=== PATIENT | female | born 1990 | race Caucasian/White ===

== ENCOUNTER → 2022-01-24 09:42 | Outpatient (CLI) | payer OTHER, SELFPAY ==
[2022-01-24 11:05] LABS: Free T3, Triiodothyronine Free 3.66 pg/mL (2.77-5.27); Free T4, Direct Thyroxine 0.94 ng/dL (0.78-2.19)
[2022-01-24 11:18] LABS: Thyroid Stimulating Hormone 1.69 uIU/mL (0.47-4.68)
[2022-01-25 19:42] LABS: Anti Thyroglobulin Antibody <1.0 IU/mL (0.0-0.9); Thyroid Peroxidase Antibodies 9 IU/mL (0-34)
== END ==
PROVIDERS: Referring Provider Obstetrics & Gynecology; Visit Provider Obstetrics & Gynecology
DX: R22.1 Localized swelling, mass and lump, neck (principal)
CPT/HCPCS: 36415; 84439; 84443; 84481; 86376; 86800

== ENCOUNTER → 2022-05-04 14:11 | Outpatient (CLI) | payer OTHER, SELFPAY | PROVIDERS: PCP Family Medicine; Visit Provider Physician Assistant | DX: R30.0 Dysuria (principal) | CPT/HCPCS: 87086 ==

== ENCOUNTER 2023-12-21 20:06 | Emergency (ER) | payer OTHER, SELFPAY ==
[2023-12-21] VITALS (15 sets, daily range): BP systolic 139–198; BP diastolic 74–122; PULSE 96–117; RESP 9–35; TEMP 36.6; O2SAT 97–100; BMI 60.8
--- NOTE | 2023-12-21 20:28 | DI.RAD.S_ITS ---
PROCEDURE: XR CHEST 1V INDICATIONS: chest pain TECHNIQUE: One view of the chest was acquired. COMPARISON: None. FINDINGS: Surgical changes and devices: None. Lungs and pleura: Lungs are clear. No pleural effusions or pneumothorax. Mediastinum: Mediastinal contours appear normal. Heart size is normal. Bones and chest wall: No suspicious bony lesions. Overlying soft tissues appear unremarkable. IMPRESSION: No acute cardiopulmonary abnormality is seen. Dictated by: Samaria Storey M.D. on 12/21/2023 at 21:11 Approved by: Samaria Storey M.D. on 12/21/2023 at 21:11
[2023-12-21] MEDS: ASPIRIN 81 MG CHEW TAB 324 MG PO (21:11)
[2023-12-21 21:21] LABS: Add Manual Diff / Slide Review NO; Basophils Absolute Auto 200 /uL (0-100); Basophils Percent Auto 1.6 % (0-2); Eosinophils Absolute Auto 200 /uL (0-450); Eosinophils Percent Auto 1.4 % (2-4); Hematocrit 39.4 % (36-46); Hemoglobin 13.4 g/dL (12.0-16.0); Lymphocytes Absolute Auto 3000 /uL (1100-4500); Lymphocytes Percent Auto 23.8 % (25-40); Mean Corpuscular Hemoglobin 29.3 PG (26-34); Mean Corpuscular Volume 86.3 fL (80-100); Monocytes Absolute Auto 400 /uL (0-900); Monocytes Percent Auto 3.1 % (3-14); Neutrophils Absolute Auto 8800 /uL (1500-7000); Neutrophils Percent Auto 70.1 % (50-75); Platelet Count 348 X10^3/uL (150-400); Red Blood Cell Count 4.57 X10^6/uL (4.0-5.2); Red Cell Distribution Width 13.4 % (11.6-14.8); White Blood Cell Count 12.5 X10^3/uL (4.5-11.0)
[2023-12-21 21:32] LABS: INR 0.9 (0.9-1.3); Prothrombin Time 10.4 SECONDS (9.4-12.5)
[2023-12-21 21:34] LABS: PTT Partial Thromboplastin Tim 33 SECONDS (25.1-36.5)
[2023-12-21 21:36] LABS: Alanine Aminotransferase 17 IU/L (<35); Albumin 4.3 g/dL (3.5-5.0); Albumin Globulin Ratio 1.2 (1.0-2.8); Alkaline Phosphatase 79 U/L (38-126); Aspartate Aminotransferase 20 IU/L (14-36); BUN Creatinine Ratio 21.1 (6-22); Bilirubin Total 0.4 mg/dL (0.2-1.3); Blood Urea Nitrogen 15 mg/dL (7-17); Calcium 9.2 mg/dL (8.4-10.2); Carbon Dioxide 22 mmol/L (22-32); Chloride 106 mmol/L (98-107); Creatine Kinase 74 U/L (30-135); Estimated Glomerular Filt Rate > 60 mL/min (>60); Globulin 3.6 g/dL (1.7-4.1); Glucose 138 mg/dL (70-100); HEMOLYSIS < 15 (0-50); Lipase 157 U/L (23-300); Magnesium 2.1 mg/dL (1.6-2.3); Potassium 3.6 mmol/L (3.4-5.1); Sodium 140 mmol/L (137-145); Total Protein 7.9 g/dL (6.3-8.2)
[2023-12-21 21:47] LABS: Troponin I < 0.012 ng/mL (0.01-0.034)
--- NOTE | 2023-12-21 22:03 | DI.CT.S_ITS ---
PROCEDURE: CT ANGIO CHEST PE PROTOCOL INDICATIONS: high liklihood PE TECHNIQUE: After the administration of intravenous contrast, 2 mm thick sections acquired from the pulmonary apices to the posterior costophrenic angles. 3-dimensional maximum intensity projection (MIP) coronal and sagittal reformats were then acquired through the thorax. For radiation dose reduction, the following was used: automated exposure control, adjustment of mA and/or kV according to patient size. COMPARISON: None. FINDINGS: Image quality: Diagnostic. Pulmonary arteries: Pulmonary arteries are normal in size, and demonstrate no intraluminal filling defects to suggest central pulmonary embolism. Lower Neck: No enlarged lymph nodes. Thyroid: No thyroid nodules which require sonographic follow up, per consensus guidelines. Axillae: No enlarged lymph nodes. Chest Wall: Unremarkable. Bones: Unremarkable. Lungs and Pleura: No pneumothorax or pleural effusions. No consolidation or suspicious nodules. Heart: Heart size is normal. No pericardial effusion. Thoracic Vessels: No aortic aneurysm. Mediastinum and Jolene: No enlarged lymph nodes. Esophagus: No wall thickening. No hiatal hernia. Upper Abdomen: Visualized upper abdomen solid organs and bowel loops appear normal. IMPRESSION: No pulmonary embolus. No acute cardiopulmonary process. Approved by: Samaria Storey M.D. on 12/22/2023 at 1:23
[2023-12-22] VITALS (7 sets, daily range): BP systolic 122–136; BP diastolic 68–80; PULSE 97–109; RESP 21–33; O2SAT 99–100
--- NOTE | 2023-12-22 00:52 | ED.CHESTPAIN ---
HPI - Chest Pain General Chief Complaint: Chest Pain Stated Complaint: CHEST Pain, irr heart beat Time Seen by Provider: 12/21/23 21:42 History of Present Illness HPI narrative: 33-year-old woman with chronic tachycardia, generalized anxiety disorder, interstitial cystitis, currently on oral contraceptives reports that as she was driving home from work today she experienced a ?weird heart feeling? that she describes as 2 large powerful beats followed by an irregular. Associated with significant lightheadedness. These symptoms lasted approximately 5-10 minutes and were not associated with syncope, diaphoresis or overt pain. When she got home she did began to notice some centralized chest pain, still continuing to feel unwell she decided to come to the emergency room for further evaluation. On arrival she is tachycardic, hypertensive, mildly tachypneic, afebrile and oxygen saturations at 99% on room air. She describes no recent fevers, chills, nausea, vomiting, diarrhea, abdominal pain. Related Data Previous Rx's Medication Instructions Recorded desogestrel-e.estradiol 0.15 1 tab PO DAILY #84 tabs 07/10/23 mg-0.02 mg(21)/e.estrad 0.01 mg(5) tablet (Mircette (28)) benzonatate 100 mg capsule 100 mg PO BID PRN cough #20 caps 09/14/23 fluticasone propionate 50 1 spray intranasal Q12H #16 grams 09/14/23 mcg/actuation nasal spray,suspension (Flonase Allergy Relief) Allergies Allergy/AdvReac Type Severity Reaction Status Date / Time amoxicillin AdvReac Intermediate Diarrhea Verified 12/21/23 20:26 Review of Systems Review of Systems Narrative: Pertinent positive and negative findings as per HPI Patient History Medical History Abnormal Pap smear of cervix Acne BMI 39.0-39.9,adult Generalized anxiety disorder with panic attacks Heart rate fast Interstitial cystitis Surgical History Hx of partial nephrectomy Family History Mother No problems noted. Father No problems noted. Social History Smoking Status: Former smoker Smoking Status: Former smoker alcohol intake frequency: a few times a week Substance Use Type: does not use Exam Initial Vital Signs Initial Vital Signs: Vital Signs Temperature 97.8 F 12/21/23 20:22 Pulse Rate 115 H 12/21/23 20:22 Respiratory Rate 20 12/21/23 20:22 Blood Pressure 174/112 H 12/21/23 20:22 Pulse Oximetry 99 12/21/23 20:22 Oxygen Delivery Method Room Air 12/21/23 20:22 General: Healthy appearing, in no acute distress. Able to give a complete and coherent history. Well-nourished well-developed HEENT: Moist mucous membranes, normal sclera with reactive pupils, Neck: No JVD, supple Respiratory: Lungs are clear to auscultation, no wheezing no rales no rhonchi. Full and symmetrical air movement chest: No reproducible chest pain to palpation Cardiac: Sinus tachycardia Regular rate and rhythm no murmurs no bruits Abdomen: Soft, nontender, good bowel tones, no flank pain Skin: Warm and dry, no rashes Neurologic: Grossly neurologically intact with no obvious asymmetries or abnormalities Extremities: No trauma, well perfused, no edema Psych: Cooperative, appropriate insight and affect Course Orders Ordered: ED Orders 12/21/23 20:28 XR chest 1V Stat EKG-12 Lead Stat 12/21/23 21:05 Complete Blood Count AUTO DIFF Stat Comprehensive Metabolic Panel Stat Lipase Stat Magnesium Stat PTT Partial Thromboplastin Sandor Stat Prothrombin Time INR Stat Troponin & CK Cardiac Panel Stat 12/21/23 22:03 CT angio chest PE protocol Stat Discontinued Medications Aspirin (Aspirin 81 Mg Chew Tab) 324 mg PO NOW ONE Stop: 12/21/23 20:29 Last Admin: 12/21/23 21:11 Dose: 324 mg Documented By: AB Vital Signs Vital signs: Vital Signs - 8 hr 12/21/23 20:22 12/21/23 20:53 12/21/23 20:53 Temperature 97.8 F Pulse Rate 115 H 117 H Respiratory Rate 20 18 Blood Pressure 174/112 H 185/122 H Pulse Oximetry 99 100 Oxygen Delivery Method Room Air 12/21/23 21:00 12/21/23 21:00 12/21/23 21:15 Temperature Pulse Rate 103 H 97 H Respiratory Rate 19 17 Blood Pressure 173/94 H Pulse Oximetry 100 100 Oxygen Delivery Method 12/21/23 21:15 12/21/23 21:30 12/21/23 21:30 Temperature Pulse Rate 98 H Respiratory Rate 19 Blood Pressure 170/89 H 159/93 H Pulse Oximetry 100 Oxygen Delivery Method 12/21/23 21:45 12/21/23 21:45 12/21/23 22:00 Temperature Pulse Rate 97 H Respiratory Rate 22 Blood Pressure 158/101 H 150/89 H Pulse Oximetry 100 Oxygen Delivery Method 12/21/23 22:00 12/21/23 22:22 12/21/23 22:22 Temperature Pulse Rate 96 H 105 H Respiratory Rate 21 9 L Blood Pressure 198/118 H Pulse Oximetry 100 99 Oxygen Delivery Method 12/21/23 22:30 12/21/23 22:30 12/21/23 22:45 Temperature Pulse Rate 112 H Respiratory Rate 17 Blood Pressure 179/102 H 172/106 H Pulse Oximetry 100 Oxygen Delivery Method 12/21/23 22:45 12/21/23 23:00 12/21/23 23:00 Temperature Pulse Rate 117 H 107 H Respiratory Rate 35 H 21 Blood Pressure 175/111 H Pulse Oximetry 99 98 Oxygen Delivery Method 12/21/23 23:15 12/21/23 23:15 12/21/23 23:30 Temperature Pulse Rate 108 H 103 H Respiratory Rate 22 21 Blood Pressure 175/106 H Pulse Oximetry 97 99 Oxygen Delivery Method 12/21/23 23:30 12/21/23 23:32 12/21/23 23:32 Temperature Pulse Rate 107 H Respiratory Rate 20 Blood Pressure 175/107 H 148/82 H Pulse Oximetry 99 Oxygen Delivery Method 12/21/23 23:45 12/21/23 23:45 12/22/23 00:00 Temperature Pulse Rate 109 H 103 H Respiratory Rate 24 28 H Blood Pressure 139/74 Pulse Oximetry 98 99 Oxygen Delivery Method 12/22/23 00:00 12/22/23 00:15 12/22/23 00:15 Temperature Pulse Rate 101 H Respiratory Rate 33 H Blood Pressure 134/74 125/72 Pulse Oximetry 99 Oxygen Delivery Method MDM - Chest Pain Lab Data 12/21/23 21:05 12/21/23 21:05 Labs: Lab Results 12/21/23 Range/Units 21:05 WBC 12.5 H (4.5-11.0) X10^3/uL RBC 4.57 (4.0-5.2) X10^6/uL Hgb 13.4 (12.0-16.0) g/dL Hct 39.4 (36-46) % MCV 86.3 (80-100) fL MCH 29.3 (26-34) PG MCHC 34.0 (30-36) % RDW 13.4 (11.6-14.8) % Plt Count 348 (150-400) X10^3/uL Neut % (Auto) 70.1 (50-75) % Lymph % (Auto) 23.8 L (25-40) % [place] % (Auto) 3.1 (3-14) % Eos % (Auto) 1.4 L (2-4) % Baso % (Auto) 1.6 (0-2) % Neut # (Auto) 8800 H (9538-9265) /uL Lymph # (Auto) 3000 (3482-3023) /uL [place] # (Auto) 400 (0-900) /uL Eos # (Auto) 200 (0-450) /uL Baso # (Auto) 200 H (0-100) /uL PT 10.4 (9.4-12.5) SECONDS INR 0.9 (0.9-1.3) APTT 33 (25.1-36.5) SECONDS Sodium 140 (137-145) mmol/L Potassium 3.6 (3.4-5.1) mmol/L Chloride 106 (98-107) mmol/L Carbon Dioxide 22 (22-32) mmol/L BUN 15 (7-17) mg/dL Creatinine 0.71 (0.52-1.04) mg/dL Estimated GFR > 60 (>60) mL/min BUN/Creatinine Ratio 21.1 (6-22) Glucose 138 H (70-100) mg/dL Calcium 9.2 (8.4-10.2) mg/dL Magnesium 2.1 (1.6-2.3) mg/dL Total Bilirubin 0.4 (0.2-1.3) mg/dL AST 20 (14-36) IU/L ALT 17 (<35) IU/L Alkaline Phosphatase 79 (38-126) U/L Total Creatine Kinase 74 (30-135) U/L Troponin I < 0.012 (0.01-0.034) ng/mL Total Protein 7.9 (6.3-8.2) g/dL Albumin 4.3 (3.5-5.0) g/dL Globulin 3.6 (1.7-4.1) g/dL Albumin/Globulin Ratio 1.2 (1.0-2.8) Lipase 157 (23-300) U/L MDM Narrative Medical decision making narrative: CC: Acute episode of abnormal heart sensation lasting 15 minutes, lightheadedness, chest pain Complicating co-morbidities: Chronic tachycardia, anxiety disorder Data collected from: patient Medical records reviewed: Urgent care notes reviewed Differential considered: Pulmonary embolism, anxiety attack, acute coronary syndrome, pneumothorax Exam documented above, pertinent findings include: Patient is tachycardic, slightly tachypneic but otherwise exam is benign. Lab Test results independently reviewed as above. Pertinent findings: CBC shows mild leukocytosis at 12.5 without left shift, no anemia Chemistries are unremarkable Troponin is undetectable Independently reviewed EKG: Sinus tachycardia at a rate of 126 nonspecific T-wave changes. No acute ischemia Imaging studies independently reviewed: Chest x-ray is unremarkable CT PE chest does not show any acute pulmonary embolism or acute thoracic findings Consultations: 1255am call to radiology dept regarding CT read, CT completed 22:03 Re-evaluations:33-year-old woman presents with acute onset of palpitation, lightheadedness and a feeling of unease. Given the fact that she is on control pills, describes an acute event lasting approximately 15 minutes with symptoms improving following, tachycardia, tachypnea, her presentation is high-risk for a pulmonary embolism and PE study is ordered Discussion: 33-year-old woman with on constellation of symptoms while she was driving earlier today. No evidence of pulmonary embolism acute ischemia, electrolyte abnormality or life-threatening issue appreciated after workup today. Patient is feeling somewhat better with heart rate down to her baseline tachycardia and blood pressure down to 124/76 without any further intervention. This may have been a panic attack or anxiety related at this point no additional workup, imaging studies or hospitalization are required. Findings reviewed with the patient and her partner, questions are answered and she is safe for discharge home Discharge Plan Departure Patient Disposition: Home Clinical Impression: Heart palpitations Instructions: DI for Panic Disorder, DI for Tachycardia Activity Restrictions/Additional Instructions: Thank you for coming in today, I think your emergency department visit was absolutely appropriate Fortunately, I did not find any life-threatening abnormalities. Specifically there is no heart attack, heart attack like syndrome, blood clots in your lungs, collapsed lungs, fluid collecting around your heart, infection or alternate explanation that would require hospitalization With your prolonged ER visit (thank you for your patient's with the 3 hours and technical difficulties in getting the CT scan officially interpreted) your heart rate and blood pressure have come back down to your baseline and you seem much more comfortable. At this time, I think it is safe for you to go home. If you find that you have new or worsening symptoms please feel free to return. Prescriptions: No Action benzonatate 100 mg capsule 100 mg PO BID PRN (Reason: cough) Qty: 20 0RF fluticasone propionate [Flonase Allergy Relief] 50 mcg/actuation spray,suspension 1 spray intranasal Q12H Qty: 16 0RF Rx Instructions: administer into each nostril desog-e.estradiol/e.estradiol [Mircette (28)] 0.15-0.02 mgx21 /0.01 mg x 5 tablet 1 tab PO DAILY Qty: 84 4RF Referrals: Damián Gonzalez DO [Primary Care Provider] - Stand Alone Forms: Patient Portal/API
== END 2023-12-22 01:59 | disposition home or self-care (01) ==
PROVIDERS: Emergency Provider Emergency Medicine; PCP Family Medicine
DX: R00.2 Palpitations (principal); I10 Essential (primary) hypertension; R00.0 Tachycardia, unspecified
CPT/HCPCS: 36415; 71045; 71275; 80053; 82550; 83690; 83735; 84484; 85025; 85610; 85730; 93005; 93010; 99284; Q9967

== ENCOUNTER → 2025-09-25 08:43 | Outpatient (CLI) | payer OTHER, SELFPAY ==
[2025-09-25 09:29] LABS: Add Manual Diff / Slide Review NO; Hematocrit 40.4 % (36-46); Hemoglobin 14.0 g/dL (12.0-16.0); Lymphocytes Absolute Auto 2300 /uL (1100-4500); Mean Corpuscular HGB Conc 34.6 % (30-36); Mean Corpuscular Hemoglobin 30.6 PG (26-34); Mean Corpuscular Volume 88.5 fL (80-100); Platelet Count 319 X10^3/uL (150-400)
[2025-09-25 09:37] LABS: Hemoglobin A1C% w Est Avg Glu 5.2 % (4.0-6.0)
[2025-09-25 09:57] LABS: Alanine Aminotransferase 26 IU/L (<35); Albumin 4.6 g/dL (3.5-5.0); Albumin Globulin Ratio 1.6 (1.0-2.8); Alkaline Phosphatase 93 U/L (38-126); Blood Urea Nitrogen 19 mg/dL (7-17); Calcium 10.0 mg/dL (8.4-10.2); Carbon Dioxide 22 mmol/L (22-32); Chloride 107 mmol/L (98-107); Cholesterol 163 mg/dL (140-199); Estimated Glomerular Filt Rate > 60 mL/min (>60); Globulin 2.8 g/dL (1.7-4.1); Glucose 105 mg/dL (70-99); HDL Cholesterol 71 mg/dL (40-60); HEMOLYSIS < 15 (0-50); Potassium 4.4 mmol/L (3.4-5.1); Sodium 140 mmol/L (137-145); Total Protein 7.4 g/dL (6.3-8.2); Triglycerides 84 mg/dL (35-150)
[2025-09-25 10:25] LABS: TSH w/ Reflex to FT4 1.92 uIU/mL (0.47-4.68)
== END ==
PROVIDERS: PCP Family Medicine; Referring Provider Family Medicine; Visit Provider Family Medicine
DX: F41.1 Generalized anxiety disorder (principal); F41.0 Panic disorder [episodic paroxysmal anxiety]; R87.619 Unspecified abnormal cytological findings in specimens from cervix uteri; N30.10 Interstitial cystitis (chronic) without hematuria; R22.1 Localized swelling, mass and lump, neck; Z13.220 Encounter for screening for lipoid disorders; Z68.39 Body mass index [BMI] 39.0-39.9, adult; Z76.89 Persons encountering health services in other specified circumstances; Z68.36 Body mass index [BMI] 36.0-36.9, adult; Z80.0 Family history of malignant neoplasm of digestive organs; Z71.3 Dietary counseling and surveillance
CPT/HCPCS: 36415; 80053; 80061; 83036; 84443; 85025